=== PATIENT | female | born 1990 | race Caucasian/White ===

== ENCOUNTER → 2017-05-27 16:20 | Outpatient (CLI) | payer SELFPAY ==
[2017-05-27 19:14] LABS: Chlamydia Trachomatis by PCR Negative (Negative); Neisserai gonorrhoeae by PCR Negative (Negative); Probe Check PASS; Sample Adequacy Control PASS; Specimen Processing Control PASS
[2017-06-01 11:58] LABS: HPV Reflexed? NOT INDICATED
== END ==
PROVIDERS: Family Provider Family Medicine; PCP Family Medicine; Visit Provider Nurse Practitioner Women's Health
DX: Z11.3 Encounter for screening for infections with a predominantly sexual mode of transmission (principal); Z12.4 Encounter for screening for malignant neoplasm of cervix
CPT/HCPCS: 87491; 87591; 88175; G0145

== ENCOUNTER 2017-09-06 14:30 | Emergency (ER) | payer SELFPAY ==
--- NOTE | 2017-09-06 14:30 | DT_ITS ---
This patient was seen during an EMR downtime September 05, 2017 - September 12, 2017. This patient may have a combination of paper and electronic documentation or all paper documentation. All documentation is viewable within the e-chart portion of [facility] for each patient visit.
[2017-09-08 18:30] LABS: Color, Urine Yellow (Yellow); Glucose, Dipstick Normal (Normal); Mucous, Urine 0 SEEN /hpf (<or=2+); Urine Clarity Sl Cloudy (Clear)
[2017-09-08 18:31] LABS: Ketone-Dipstick Negative (Negative); Urine Bilirubin Dipstick Negative (Negative)
[2017-09-08 18:32] LABS: Amorphous Sediment 1+; Bacteria RARE /hpf (None Seen); Leukocyte Esterase-Dipstick 500 /ul (Negative); Nitrite-Dipstick Negative (Negative); Occult Blood-Urine 50 /ul (Negative); Protein-Dipstick 30 mg/dl (Negative); Red Blood Cells-Urine 0-5 SEEN /hpf (0-5); Squamous Epithelial Cells - UA 0-5 SEEN /hpf (5-10); Urine Urobilinogen 1 mg/dl (Normal); White Blood Cells 10-25 SEEN /hpf (0-5)
[2017-09-08 21:57] LABS: BUN 16 mg/dL (7-18); Glucose 104 mg/dL (74-106)
[2017-09-08 21:58] LABS: Anion Gap 7 (5-15); BUN/Creat Ratio 21.3 RATIO (10-20); Calcium,Total 8.2 mg/dL (8.5-10.1); Chloride 105 mmol/L (98-107); Creatinine, Serum 0.75 mg/dL (0.55-1.02); EST Glomerular Filtration Rate 99 mL/min (>60); Est Glom Filt Rate - Afr Amer 120 mL/min (>60); Potassium 3.6 mmol/L (3.5-5.1); Sodium Level 136 mmol/L (136-145)
[2017-09-09 11:25] LABS: Hemoglobin 14.7 g/dl (12.0-15.0); Red Blood Count 4.95 M/mm3 (4.2-5.4)
[2017-09-09 11:26] LABS: Hematocrit 43.2 % (37-47); Mean Corpuscular Hgb 29.7 pg (27.0-32.0); Mean Corpuscular Volume 87.3 fL (81-99); Mean Platelet Vol. 10.2 fl (6.2-12.0); Platelet Count 261 K/mm3 (150-450); RBC Distribution Width CV 12.7 % (11.6-14.6); RBC Distribution Width SD 40.7 fl (35.1-43.9)
[2017-09-09 11:27] LABS: Absolute Lymphocyte Count 0.61 X10^3/ul (0.83-4.51); Basophil# 0.01 X10^3/uL; Basophil% 0.1 % (0-1); Eosinophil# 0.12 X10^3/uL; Eosinophils% 0.6 % (0-5); Lymphocyte # 0.61 X10^3/ul (4.0); Lymphocyte % 3.2 % (19-41); Monocyte# 1.23 X10^3/uL; Monocyte% 6.5 % (0-10); Neutrophil # 16.95 X10^3/uL (2.7-7.7); Neutrophil % 89.4 % (47-70); POSITIVE COUNT NO; POSITIVE DIFFERENTIAL NO; POSITIVE MORPHOLOGY NO
== END 2017-09-06 18:06 | disposition home or self-care (01) ==
LOC: ED 09-08 07:50
PROVIDERS: Emergency Provider Emergency Medicine; Family Provider Family Medicine; PCP Family Medicine
DX: N39.0 Urinary tract infection, site not specified (principal); F17.210 Nicotine dependence, cigarettes, uncomplicated
CPT/HCPCS: 36415; 80048; 81001; 85025; 87086; 87088; 99284; A4216